=== PATIENT | female | born 1990 | race African-American/Black ===

== ENCOUNTER 2017-09-20 17:24 | Emergency (ER) | payer MEDICAID ==
[~2017-09-20] VITALS: Ht 162.6 cm; Wt 70.0 kg
[2017-09-20] MEDS ORDERED: HYDROCODONE/ACETAMINOPHEN 5/325MG TABLET PO ONE (19:00)
[2017-09-20 22:10] VITALS: BP 127/84
== END 2017-09-20 22:14 | disposition home or self-care (01) ==
LOC: ER 18:20
DX: S30.1XXA Contusion of abdominal wall, initial encounter (principal); W01.0XXA Fall on same level from slipping, tripping and stumbling without subsequent striking against object, initial encounter; Y93.89 Activity, other specified; Y92.89 Other specified places as the place of occurrence of the external cause; Y99.8 Other external cause status
CPT/HCPCS: 74000; 81025; 99283